=== PATIENT | male | born 1980 | race Caucasian/White ===

== ENCOUNTER 2017-03-18 15:13 | Emergency (ER) | payer SELFPAY ==
[~2017-03-18] VITALS: Ht 172.7 cm; Wt 85.0 kg
[2017-03-18 21:06] VITALS: BP 122/66
== END 2017-03-18 21:07 | disposition home or self-care (01) ==
LOC: ER 19:41
DX: F10.129 Alcohol abuse with intoxication, unspecified (principal)
CPT/HCPCS: 99283